=== PATIENT | male | born 2000 | race African-American/Black ===

== ENCOUNTER 2022-06-28 04:54 | Emergency (ER) | payer MEDICAID ==
[~2022-06-28] VITALS: Ht 167.6 cm; Wt 56.0 kg
[2022-06-28 05:44] VITALS: BP 117/73
[2022-06-28] MEDS ORDERED: IBUP600T27 PO (07:12)
[2022-06-28] MEDS ORDERED: CEPH-510 PO (07:12)
== END 2022-06-28 07:21 | disposition home or self-care (01) ==
LOC: ER 04:54
DX: L02.32 Furuncle of buttock (principal); S42.491A Other displaced fracture of lower end of right humerus, initial encounter for closed fracture

== ENCOUNTER 2024-01-20 11:09 | Emergency (ER) | payer MEDICAID ==
[~2024-01-20] VITALS: Ht 157.5 cm; Wt 57.1 kg
[~2024-01-20 11:09] MED LIST: CEPH-510 PO; IBUP-1454 PO
[2024-01-20 13:29] VITALS: BP 150/66; PULSE 94; RESP 16; TEMP 99.8; O2SAT 96
[2024-01-20] MEDS: IBUPROFEN 600 MG TAB PO ONE (14:07)
== END 2024-01-20 14:12 | disposition left against medical advice (07) ==
LOC: ER 11:09
DX: M79.645 Pain in left finger(s) (principal)

== ENCOUNTER 2025-01-03 11:51 | Emergency (ER) | payer MEDICAID, OTHER ==
[~2025-01-03] VITALS: Ht 160 cm; Wt 57.6 kg
[2025-01-03] MEDS ORDERED: AZIT-43 PO (13:58)
[2025-01-03] MEDS ORDERED: IBUP-1454 PO (13:58)
--- NOTE | 2025-01-03 13:58 | ED.PDOC ---
Eye-HPI HPI Comments This is a pleasant 24-year-old male with no pertinent MHx that presents with a chief complaint of throat pain x2 days. No associated symptoms. Tried [id number] pain medications at home remedies with temporary improvement. Denies chest pain shortness of breath Denies inability to move neck, history of meningitis Denies difficulty swallowing nor persistent salivation Denies fevers chills night sweats Denies persistent cough, runny nose, congestion Denies loss of appetite, unintentional weight loss over the past 3 months Denies voice changes Denies history of asthma or seasonal allergies Chief Complaint: Sore Throat Time Seen by MD: 11:54 Primary Care Provider: JUDAH Reviewed Notes: Nurses Notes, Medications, Allergies Allergies: Coded Allergies: NO KNOWN ALLERGIES (Unverified , 03/05/13) Home Meds Active Scripts Ibuprofen (Ibuprofen) 600 Mg Tab, 1 TAB PO TID for 10 Days, #30 TAB 0 Refills Prov:GRACIE NGUYEN FRENCH LECTURER 01/03/25 Azithromycin (Azithromycin) 250 Mg Tab, 250 MG PO DAILY MDD 500 for 5 Days, #6 TAB 0 Refills 2 TABLETS ORALLY ON DAY ONE, THEN 1 TABLET ORALLY DAILY FOR 4 DAYS Prov:GRACIE NGUYEN NP 01/03/25 Ibuprofen (Ibuprofen) 600 Mg Tab, 1 TAB PO TID, #30 TAB Prov:RAFAEL PHAM 06/28/22 Cephalexin ( Keflex 500) 500 Mg Cap, 1 CAP PO TID, #30 CAP Prov:RAFAEL PHAM 06/28/22 Information Source: Patient Mode of Arrival: Ambulatory Past Medical History PAST MEDICAL HISTORY: Denies Surgical History: Denies all surgeries Family History Family History: Reviewed,noncontributory to illness Social History Smoker: Non-Smoker Alcohol: Denies ETOH Use Drugs: Denies Drug Use Lives In: Home All Other Systems: Reviewed and Negative (Per HPI) Physical Exam General Appearance: No Apparent Distress, Normal HEENT: Normal ENT Inspection, Pharyngeal Erythema (Bilateral tonsillar exudate. Uvula midline. Moist mucous membranes. No strawberry tongue and no Koplik's spots), TMs Normal Neck: Full Range of Motion, Non-Tender, Normal, Normal Inspection Respiratory: Chest Non-Tender, Lungs Clear, No Accessory Muscle Use, No Respiratory Distress, Normal Breath Sounds Cardiovascular: No Edema, No JVD, No Murmur, No Gallop, Normal Peripheral Pulses, Regular Rate/Rhythm Breast Exam: Deferred Gastrointestinal: No Organomegaly, Non Tender, No Pulsatile Mass, Normal Bowel Sounds, Soft Genitalia: Deferred Pelvic: Deferred Rectal: Deferred Extremities: No calf tenderness, Normal capillary refill, Normal inspection, Normal range of motion, Non-tender, No pedal edema Musculoskeletal : Apperance: Normal Neurologic: Alert, medical laboratory assistant II-XII nml as Tested, No Motor Deficits, Normal Affect, Normal Mood, No Sensory Deficits Cerebellar Function: Normal Reflexes: Normal Skin: Dry, Normal Color, Warm Lymphatic: No Adenopathy Was a procedure done? Was a procedure done?: No EENT DIFF Eye: Other Sore Throat: Streptococcal, Viral Pharyngitis, URI, Other X-Ray, Labs, Meds, VS Vital Signs Date Time Temp Pulse Resp B/P (MAP) Pulse Ox O2 Delivery O2 Flow Rate FiO2 01/03/25 14:09 76 16 97 Room Air 01/03/25 14:09 97.9 82 16 133/72 (92) 98 97.9 01/03/25 12:46 97.9 79 18 112/58 (76) 96 97.9 X-Ray, Labs, Meds, VS Comment Patient presents with a chief complaint of a sore throat. After review of systems and physical examination there are no no concerns or red flags for peritonsillar abscess, abscess formation, epiglottitis, retropharyngeal abscess formation or airway obstruction. No concerns for peritonsillar abscess as patient denies severe sore throat, muffled or hot potato voice, and difficulty handling secretions. No concerns for abscess formation as the soft palate is symmetrical and there is no displacement of the uvula and the uvula is also midline. No concerns for epiglottitis as patient denies severe sore throat, dysphagia, muffled voice, patient is not drooling nor is patient in tripod position. No signs of retropharyngeal abscess formation as patient has no fevers, stiff neck, drooling no stridor No signs of airway obstruction as patient denies sensation of foreign body vital signs stable on room air. Exam/test findings consistent with strep throat infection. Based on show decision-making patient agreed to empiric treatment Prescribed p.o. antibiotics for presentation of symptoms Complete course of antibiotic therapy even if symptoms improve or resolve. There should be no leftover antibiotics as this can lead to antibiotic resistant bacteria and even worse infection. Patient verbalized understanding. Potential side effects discussed with patient including abdominal pain, nausea, diarrhea. Encouraged fluid intake Acetaminophen to reduce pain/fever NSAIDs to reduce pain/fever Nonpharmacological recommendations given Warm salt water gargles Throat lozenges Humidified air Patient is stable for discharge at this time. External notes reviewed. Test results and diagnostic imaging interpreted. All diagnostic findings, discharge care, education and instructions provided Follow-up with PCP in 2 to 3 days Patient verbalized understanding and agreed to treatment plan Vital signs stable, afebrile, no acute distress noted Patient ambulatory with strong steady gait Advised to return precautions for any new or worsening symptoms, return to ER immediately for re-evaluation Patient is aware that the purpose of this visit was for an acute medical emerg ency requiring emergent stabilization. Chronic conditions, including malignancies have not been ruled out. Patient is instructed to follow up with PCP as directed and discharge instructions for continued care and workup. If unable to arrange follow-up, patient is to return to the emergency department for reassessment. Patient (parent or legal guardian if applicable) was given ve rbal and written discharge instructions and acknowledges understanding. Time of 1ST Reevaluation: 13:46 Reevaluation 1ST: Improved Patient Education/Counseling: Diagnosis, Treatment Family Education/Counseling: Diagnosis, Treatment Departure 1 Departure Time of Disposition: 13:56 Impression: Primary Impression: Tonsillar exudate Disposition: HOME / SELF CARE / HOMELESS Condition: Stable e-Prescriptions Ibuprofen (Ibuprofen) 600 Mg Tab 1 TAB PO TID for 10 Days, #30 TAB 0 Refills Prov: GRACIE NGUYEN NP 01/03/25 Azithromycin (Azithromycin) 250 Mg Tab 250 MG PO DAILY MDD 500 for 5 Days, #6 TAB 0 Refills 2 TABLETS ORALLY ON DAY ONE, THEN 1 TABLET ORALLY DAILY FOR 4 DAYS Prov: GRACIE NGUYEN NP 01/03/25 Discharged With: Self Critical Care Note Critical Care Time?: No Stability Stability form required: No Heart Score Heart Score: Heart Score Response (Comments) Value History N/A 0 EKG N/A 0 Age N/A 0 Risk Factors N/A 0 Troponin N/A 0 Total 0 GRACIE NGUYEN NP January 03, 2025 13:58
[2025-01-03 14:09] VITALS: BP 133/72; PULSE 76; RESP 16; TEMP 97.9; O2SAT 97
== END 2025-01-03 14:10 | disposition home or self-care (01) ==
LOC: ER 12:11
DX: J35.8 Other chronic diseases of tonsils and adenoids (principal); Z79.899 Other long term (current) drug therapy